=== PATIENT | male | born 1970 | race Caucasian/White ===

== ENCOUNTER 2022-05-28 13:29 | Emergency (ER) | payer BC ==
[~2022-05-28 13:29] MED LIST: Lidocaine 1% (PF) 30 ML VIAL ONE
[2022-05-28] MEDS ORDERED: Bacitracin 1 PK ONE (14:15)
== END 2022-05-28 14:40 | disposition home or self-care (01) ==
LOC: MADERS 13:29
DX: S61.211A Laceration without foreign body of left index finger without damage to nail, initial encounter (principal); S61.231A Puncture wound without foreign body of left index finger without damage to nail, initial encounter; I10 Essential (primary) hypertension; W34.00XA Accidental discharge from unspecified firearms or gun, initial encounter
CPT/HCPCS: 12002; J2001